=== PATIENT | female | born 1940 | race Caucasian/White ===

== ENCOUNTER 2019-03-10 17:20 | Emergency (ER) | payer MEDICARE, BC ==
[2019-03-10] MEDS ORDERED: valACYclovir 500 MG TAB ONE (18:06)
[2019-03-10] MEDS ORDERED: Acetaminophen/Codeine 30-300mg Tablet ONE (18:06)
== END 2019-03-10 18:21 | disposition home or self-care (01) ==
LOC: BURERS 17:20
DX: B02.9 Zoster without complications (principal); I11.0 Hypertensive heart disease with heart failure; I50.9 Heart failure, unspecified; J44.9 Chronic obstructive pulmonary disease, unspecified
CPT/HCPCS: 99282

== ENCOUNTER 2019-05-24 18:15 | Emergency (ER) | payer MEDICARE, BC ==
[2019-05-24 18:59] LABS: INR-International Normal Ratio 1.2; PTT 28.5 SEC (22.9-36.1); Prothrombin Time 15.2 SEC (12.0-14.7)
[2019-05-24 19:08] LABS: ALT (SGPT) 8 U/L (8-55); AST (SGOT) 17 U/L (5-34); Albumin 3.8 g/dL (3.4-4.8); Alkaline Phosphatase 66 U/L (40-150); Anion Gap 22 mmol/L (10-20); BUN (Urea Nitrogen) 25 mg/dL (9.8-20.1); Bilirubin, Total 0.5 mg/dL (0.2-1.2); CK (CPK) 85 U/L (29-168); Calc. Creatinine Clearance 0 mL/min (70-130); Calcium 9.5 mg/dL (7.8-10.44); Carbon Dioxide 22 mmol/L (23-31); Chloride 92 mmol/L (98-107); Estimated GFR-MDRD 36; Glucose 76 mg/dL (83-110); Potassium 4.6 mmol/L (3.5-5.1); Protein, Total 8.8 g/dL (6.0-8.3); Sodium 131 mmol/L (136-145)
[2019-05-24 19:09] LABS: Band 4 % (5-11); Lymphocytes 25 % (21-51); MDiff Complete? YES; Mean Corpuscular Hemoglobin 24.7 pg (27.0-31.0); Mean Corpuscular Volume 79.7 fL (78.0-98.0); Mean Platelet Volume 7.1 fL (7.4-10.4); Microcytosis SLIGHT = 6-15 cells (100X) (0-5/hpf); Monocytes 7 % (0-10); Neutrophil 64 % (42-75); Platelet Count 203 thou/uL (130-400); RBC Distribution Width 15.1 % (11.5-14.5); Red Blood Cell (RBC) Count 5.27 mill/uL (4.20-5.40); White Blood Cell (WBC) Count 7.8 thou/uL (4.8-10.8)
[2019-05-24] MEDS ORDERED: Ondansetron PF 4 MG/2 ML Vial ONE (19:44)
--- NOTE | 2019-05-24 19:57 | RAD ---
PORTABLE CHEST: 05/24/19 PROVIDED CLINICAL HISTORY: Shortness of breath. FINDINGS: No comparisons. Cardiac and mediastinal silhouettes are within normal limits. Vascular calcifications involves the ao rtic arch. Prominent emphysematous changes are seen. No focal consolidation, pleural fluid, or pneumo thorax apparent. IMPRESSION: No evidence for an acute cardiopulmonary process. POS: ELISE
== END 2019-05-24 21:20 | disposition short-term general hospital (02) ==
LOC: BURERS 18:15
DX: R06.02 Shortness of breath (principal); I11.0 Hypertensive heart disease with heart failure; I50.9 Heart failure, unspecified; J44.9 Chronic obstructive pulmonary disease, unspecified; Z87.891 Personal history of nicotine dependence; Z79.899 Other long term (current) drug therapy; Z79.51 Long term (current) use of inhaled steroids
CPT/HCPCS: 71045; 80053; 82550; 84443; 84484; 85025; 85610; 85730; 93005; 96361; 96374; J2405

== ENCOUNTER 2019-06-15 10:39 | Outpatient (CLI) | payer MEDICARE, BC ==
--- NOTE | 2019-06-15 20:49 | ULT ---
THYROID ULTRASOUND: 06/15/19 Ultrasonography of the thyroid gland was seen in this patient that comes with a history of a nodule s een on a prior exam elsewhere. There were no studies available for comparison. The thyroid gland is normal in size. The right lobe measures 3.7 x 1.3 x 1.5 cm and the left lobe deborah sures 3.1 x 1.0 x 1.0 cm. There is a mostly solid complex nodule in the middle third of the right lobe laterally. It measures 2 .7 x 1.2 x 1.3 cm. There is also a small subcentimeter cystic area in the upper and lower poles of th e right lobe. The left lobe also contains a mostly solid complex nodule in the middle to lower part of the lobe. It measures 1.4 x 1.2 x 0.8 cm. Also noted are a couple of cystic area in the upper and lower poles. No surrounding adenopathy was seen. IMPRESSION: While there are multiple nodules and that usually is a benign condition, one could not properly call this a multinodular goiter as the thyroid is not at all enlarged. The complex nature of the larger no dule seen in the mid portion of each lobe and their margins not being as discrete as possible, give m e some concern about the nodules themselves. I believe referral to consideration of a needle biopsy m ight be prudent. Code T POS: HOME
== END 2019-06-15 10:40 | disposition home or self-care (01) ==
LOC: EEVIPCON 10:39 → BURULT 10:39
PROVIDERS: ATTEND Nurse Practitioner
DX: E04.2 Nontoxic multinodular goiter (principal)
CPT/HCPCS: 76536

== ENCOUNTER 2019-10-07 11:43 | Emergency (ER) | payer MEDICARE, BC ==
[2019-10-07] MEDS ORDERED: Acetaminophen/Codeine 30-300mg Tablet ONE (12:01)
--- NOTE | 2019-10-07 12:45 | RAD ---
LEFT ANKLE 3 VIEWS: HISTORY: Injury. COMPARISON: None. FINDINGS: There is a mildly displaced distal fibular fracture extending above the level of the syndesmosis. Th ere is a posterior malleolar fracture involving approximately 40% of the articular surface displaced posteriorly 8 mm. There is also a transversely oriented minimally displaced medial malleolar fractur e. Large joint effusion. IMPRESSION: Trimalleolar fracture. POS: CET
--- NOTE | 2019-10-07 12:45 | RAD ---
EXAM: 2 views of the left tibia/fibula HISTORY: Left ankle injury 2 hours prior to arrival COMPARISON: None FINDINGS: There is a fracture of the distal fibula which is spiral in nature. There may also be a fra cture of the medial malleolus and posterior malleolus. Moderate soft tissue swelling is seen. No degenerative changes are seen in the knee or ankle. IMPRESSION: Trimalleolar fracture
== END 2019-10-07 13:20 | disposition home or self-care (01) ==
LOC: BURERS 11:43
DX: S82.852A Displaced trimalleolar fracture of left lower leg, initial encounter for closed fracture (principal); I11.0 Hypertensive heart disease with heart failure; I50.9 Heart failure, unspecified; J44.9 Chronic obstructive pulmonary disease, unspecified; Z87.891 Personal history of nicotine dependence; Z79.899 Other long term (current) drug therapy; Z79.51 Long term (current) use of inhaled steroids; W10.9XXA Fall (on) (from) unspecified stairs and steps, initial encounter
CPT/HCPCS: 29515